=== PATIENT | female | born 1940 | race Caucasian/White ===

== ENCOUNTER → 2017-05-05 | Outpatient (CLI) | payer MEDICARE, OTHER ==
[~2017-05-05] MED LIST: AMAN100C7 PO; AMLO5TAB2 PO; ASCO10002 PO; ASPI325T11 PO; CYCL1DRO OP; DIAZ5TAB4 PO; FISH OIL OMEGA1 EACH PO; GABA600T PO; METH10TA13 PO; MULT-245 PO; POTA500T5 PO; RANI150T2 PO; TRIA1TAB3 PO
--- NOTE | 2017-05-05 12:36 | KCIC ---
Renal ultrasound History:Neurogenic bladder Comparison: April 07, 2016. Technique: Sonographic imaging of both kidneys. Findings: Aorta: Not evaluated. Inferior vena cava: Not evaluated. Right kidney measures 9.8 cm longitudinal.. No evidence of hydronephrosis. Left kidney measures 9.8 cm. No evidence of hydronephrosis. Urinary bladder: Incompletely distended. There is irregular wall thickening. There are some echogenic regions which may represent calcifications in the urinary bladder wall. Prevoid volume 99.2 cc and post void volume 44.6 cc. Impression: 1. Irregular wall thickening of the urinary bladder, presumably due to neurogenic bladder. 2. Post void residual bladder volume is 44.6 cc. Electronically signed by: Sanchez Schneider MD (05/05/2017 12:33 PM) [email or web address]
== END | disposition home or self-care (01) ==
LOC: KCIC US 11:20
PROVIDERS: ATTEND Urology
DX: N31.2 Flaccid neuropathic bladder, not elsewhere classified (principal); R33.8 Other retention of urine
CPT/HCPCS: 76770

== ENCOUNTER → 2017-10-21 | Outpatient (CLI) | payer MEDICARE, OTHER | END | disposition home or self-care (01) | LOC: KCIC 15:23 | DX: M41.84 Other forms of scoliosis, thoracic region (principal); R61 Generalized hyperhidrosis; R05 Cough | CPT/HCPCS: 71046 ==

== ENCOUNTER → 2018-09-28 | Outpatient (CLI) | payer MEDICARE, OTHER ==
[2017-12-13 11:09] VITALS: BP 124/42
[~2018-09-28] MED LIST changes: -AMLO5TAB2 PO; +AMLO5TAB7 PO; +CEFP200T PO
--- NOTE | 2018-09-28 17:53 | KCIC ---
Examination: RENAL COMPLETE BILATERAL History: Suprapubic catheter. Uninhibited neuropathic bladder. Comparison/Correlation: 05/05/2017 bilateral renal ultrasound Findings: Renal ultrasound exam performed. Right kidney measures 9.6 cm x 4.4 cm x 3.9 cm. Left kidney measures 10.14 x 3.17 x 4.8 cm. No hydronephrosis. Renal contours are unremarkable. Renal cortical echotexture is within normal limits. Thinning of the right renal cortex compared to the left renal cortex is noted. Abdominal aortic diameter of 2.4 cm proximally is seen. Inferior vena cava is unremarkable. Suprapubic urinary bladder catheter is present. No distention of the urinary bladder. Atherosclerotic involvement of the aorta is seen. Impression: Mild right renal atrophy. No hydronephrosis. Electronically signed by: Sivakumar Wright MD (09/28/2018 5:49 PM) [facility]
== END | disposition home or self-care (01) ==
LOC: KCIC US 11:59
PROVIDERS: ATTEND Urology
DX: N26.1 Atrophy of kidney (terminal) (principal); I70.0 Atherosclerosis of aorta
CPT/HCPCS: 76770

== ENCOUNTER → 2019-03-15 | Outpatient (CLI) | payer MEDICARE, OTHER ==
[2017-12-13 11:09] VITALS: BP 124/42
[~2019-03-15] MED LIST changes: +AMLO5TAB10 PO; -AMLO5TAB7 PO
--- NOTE | 2019-03-15 17:13 | KCIC ---
EXAM: Dual energy x-ray absorptiometry (DEXA). HISTORY: Postmenopausal female presents for osteoporosis screening. COMPARISON: 02/26/2015. TECHNIQUE: Dual energy x-ray absorptiometry of the lumbar spine and left hip was performed. Calculation of bone mineral density based on standard deviations above or below the expected young adult normal value (T-score) was completed. FINDINGS: The average bone mineral density in the 1st through 4th lumbar vertebrae is 1.009 g/cmxcm, corresponding with a T-score of -0.3. There is been a 7.6 percent increase in density of the lumbar spine compared to the prior study. The average total bone mineral density in the left hip is 0.611 g/cmxcm, corresponding with a T-score of -2.7. There is been a 7.8 percent increase in density of the left hip compared to the prior study. IMPRESSION: 1. Osteoporosis measures at the left hip. 2. Normal bone mineral density measured at the lumbar spine. Note: Definitions established by the World Health Organization: 1. Normal: T-score is -1.0 or above. 2. Osteopenia: T-score is between -1.0 and -2.5 . 3. Osteoporosis: T-score is -2.5 or below. Electronically signed by: Bárbara Jones MD (03/15/2019 5:10 PM) [facility]
== END | disposition home or self-care (01) ==
LOC: KCIC DEXA 12:30
PROVIDERS: ATTEND Family Medicine
DX: M81.0 Age-related osteoporosis without current pathological fracture (principal)
CPT/HCPCS: 77080

== ENCOUNTER → 2019-04-06 | Outpatient (CLI) | payer MEDICARE, OTHER ==
[2017-12-13 11:09] VITALS: BP 124/42
--- NOTE | 2019-04-06 17:15 | KCIC ---
Examination: Ultrasound kidneys HISTORY: History of neurogenic bladder with 6 month follow-up COMPARISON: 05/05/2017 FINDINGS: The right kidney measures 9.9 x 4.6 x 4.5 cm. The left kidney measures 9.8 x 4.1 x 4.2 cm. No evidence of hydronephrosis. Suprapubic catheter is identified. The bladder appears empty. IMPRESSION: 1. Suprapubic catheter is identified. The urinary bladder is empty. 2. Normal-appearing kidneys. Electronically signed by: Cody Santana MD (04/06/2019 5:12 PM) [email or web address]
== END | disposition home or self-care (01) ==
LOC: KCIC US 14:46
PROVIDERS: ATTEND Urology
DX: N31.0 Uninhibited neuropathic bladder, not elsewhere classified (principal); Z96.0 Presence of urogenital implants
CPT/HCPCS: 76770

== ENCOUNTER → 2019-10-25 | Outpatient (CLI) | payer MEDICARE, OTHER ==
[2017-12-13 11:09] VITALS: BP 124/42
--- NOTE | 2019-10-25 13:20 | KCIC ---
RENAL COMPLETE BILATERAL DATE: 10/25/2019 10:00 AM INDICATION: Neurogenic bladder. COMPARISON: 04/06/2019 TECHNIQUE: Multiple transverse longitudinal grayscale images of the kidneys and urinary bladder with color Doppler as appropriate. FINDINGS: The kidneys are normal in echogenicity. The right kidney measures 9.9 cm. The left kidney measures 11.6 cm. No hydronephrosis, shadowing calculi or suspicious masses seen on either side. The urinary bladder is decompressed by suprapubic catheter. The visualized portions of the abdominal aorta and IVC are normal in caliber. IMPRESSION: 1. No hydronephrosis. 2. Urinary bladder is decompressed by suprapubic catheter. Electronically signed by: Deandre Dsouza MD (10/25/2019 1:17 PM) [email or web address]
== END | disposition home or self-care (01) ==
LOC: KCIC US 09:41
PROVIDERS: ATTEND Urology
DX: N31.0 Uninhibited neuropathic bladder, not elsewhere classified (principal)
CPT/HCPCS: 76770

== ENCOUNTER → 2020-04-18 | Outpatient (CLI) | payer MEDICARE, OTHER ==
[2017-12-13 11:09] VITALS: BP 124/42
--- NOTE | 2020-04-18 16:40 | KCIC ---
RENAL COMPLETE BILATERAL History: Neurogenic bladder Comparison: October 25, 2019 Findings: Multiple sonographic images of the kidneys and urinary bladder are submitted. Urinary bladder is decompressed by suprapubic catheter. Right kidney measured 9.1 x 4.9 x 5.1 cm without hydronephrosis. Left kidney measured 9 x 3.2 x 3.8 cm, no hydronephrosis. Impression: 1. No significant abnormality is demonstrated. Urinary bladder is decompressed by suprapubic catheter. Electronically signed by: Deandre Ugarte MD (04/18/2020 4:37 PM) [facility]
== END | disposition home or self-care (01) ==
LOC: KCIC US 15:10
PROVIDERS: ATTEND Family Medicine
DX: N31.9 Neuromuscular dysfunction of bladder, unspecified (principal)
CPT/HCPCS: 76770

== ENCOUNTER → 2020-07-23 | Outpatient (CLI) | payer MEDICARE, OTHER ==
[2017-12-13 11:09] VITALS: BP 124/42
[~2020-07-23] MED LIST changes: +AMLO-186 PO; -AMLO5TAB10 PO; +ASCO100019 PO; -ASCO10002 PO
--- NOTE | 2020-07-23 13:58 | KCIC ---
Left foot 3 views INDICATION: Left foot injury and after a fall 2 weeks ago. FINDINGS: 3 views of the left foot show a mid shaft acute fracture of the third metatarsal with slight lateral displacement. The bones are diffusely demineralized. No other acute osseous abnormality is seen. The soft tissues show elevation of the subungual soft tissues of the nail bed of the left great toe. IMPRESSION: Acute oblique fracture of the midshaft third metatarsal of the left foot with mild lateral displacement. Electronically signed by: Simon Navarro MD (07/23/2020 1:55 PM) [id number]
== END ==
LOC: KCIC 13:26
PROVIDERS: ATTEND Family Medicine
DX: S92.332A Displaced fracture of third metatarsal bone, left foot, initial encounter for closed fracture (principal); M80.872A Other osteoporosis with current pathological fracture, left ankle and foot, initial encounter for fracture; X58.XXXA Exposure to other specified factors, initial encounter; Y93.89 Activity, other specified; Y92.89 Other specified places as the place of occurrence of the external cause; Y99.8 Other external cause status
CPT/HCPCS: 73630

== ENCOUNTER → 2020-12-06 | Outpatient (CLI) | payer MEDICARE, OTHER ==
[2017-12-13 11:09] VITALS: BP 124/42
--- NOTE | 2020-12-07 01:44 | KCIC ---
Study: XR KNEE 3 VIEWS Indication: Bilateral knee pain. Comparison: None. Findings: Right knee: Intact arthroplasty construct. No radiographic findings of loosening. No acute periprosthetic fractur e. Focus of ossification adjacent to the superior pole of the patella is chronic as are a few additional ossific foci along the femorotibial joint space. No large knee joint effusion. Vascular calcificatio ns. Osteopenia. Left knee: Intact arthroplasty construct. No findings of loosening. No acute periprosthetic fracture. Increased attenuation at the suprapatellar recess on the lateral view could represent an effusion or postoperat aye synovial thickening. Vascular calcifications. Osteopenia. Impression: Right and left knees: 1. Intact and well fixated knee arthroplasty constructs on both the right and left. No periprosthetic fracture. 2. Postoperative synovial thickening or effusion seen at the suprapatellar recess on the left. No lar ge effusion on the right. 3. Osteopenia. Electronically signed by: LENORA MIKE MD (12/07/2020 1:42 AM) [facility]
== END ==
LOC: KCIC 13:37
PROVIDERS: ATTEND Physician Assistant
DX: R29.898 Other symptoms and signs involving the musculoskeletal system (principal); M85.88 Other specified disorders of bone density and structure, other site; M25.561 Pain in right knee; M25.562 Pain in left knee
CPT/HCPCS: 73562-50

== ENCOUNTER → 2021-09-19 | Outpatient (CLI) | payer MEDICARE, OTHER ==
[2017-12-13 11:09] VITALS: BP 124/42
[~2021-09-19] MED LIST changes: -AMAN100C7 PO; +[UNRECOGNIZED DRUG - CODE] PO
--- NOTE | 2021-09-20 10:40 | KCIC ---
XR LUMBAR SPINE 2-3V 09/20/2021 Reason: Acute Lt sided LBP, osteoporosos, scoliosis. Comparison: None Technique: AP and lateral views of the lumbar spine. Findings: Lumbar spine evaluation is severely limited by positioning and patient's severe scoliosis. There is d iffuse osteopenia. There is S-shaped rotoscoliosis of the lumbar spine. Possible laminectomy changes at the lower levels. Vertebral body height is difficult to evaluate the liver may be height loss at t he L1 level. There is a large amount of sclerosis at the L1-L2 level. Moderate stool in the pelvis. Impression: Severely limited study due to patient positioning with severe scoliosis. There may be height loss at the L1 vertebral level. Cross sectional imaging may be helpful if clinically indicated. Electronically signed by: Garo Campbell (09/20/2021 10:37 AM) [id number]
== END ==
LOC: KCIC 14:53
PROVIDERS: ATTEND Family Medicine
DX: M41.26 Other idiopathic scoliosis, lumbar region (principal); M85.88 Other specified disorders of bone density and structure, other site; M51.36 Other intervertebral disc degeneration, lumbar region; M81.0 Age-related osteoporosis without current pathological fracture; W19.XXXA Unspecified fall, initial encounter
CPT/HCPCS: 72100